=== PATIENT | male | born 1945 | race Caucasian/White ===

== ENCOUNTER 2020-03-12 03:34 | Emergency (ER) | payer OTHER ==
[~2020-03-12] VITALS: Ht 177.8 cm; Wt 90.7 kg
== END 2020-03-12 10:00 | disposition home or self-care (01) ==
LOC: ER 03:34 → CPU-OBS 04:13 → ER 04:13
DX: R07.89 Other chest pain (principal); M94.0 Chondrocostal junction syndrome [Tietze]

== ENCOUNTER → 2020-04-12 | Emergency (ER) | payer OTHER ==
[~2020-04-12] VITALS: Ht 177.8 cm; Wt 90.7 kg
[~2020-04-12] MED LIST: CARAFATE1 GM PO; CARVEDILOL ER40 MG; CHILDREN'S ASPI81 MG; DESLORATADINE5 M1; ENALAPRIL MALEA10 MG; FORTAMET1000 MG; FUROSEMIDE20 MG; LEVSIN0.125 MG PO; LIPITOR40 MG; PANTOPRAZOLE SO20 MG; PANTOPRAZOLE SO20 MG PO; PLAVIX75 MG
== END | disposition home or self-care (01) ==
LOC: ER 00:38
DX: K29.60 Other gastritis without bleeding (principal); R10.13 Epigastric pain; Z03.818 Encounter for observation for suspected exposure to other biological agents ruled out